=== PATIENT | male | born 1950 | race Two or more races ===

== ENCOUNTER 2019-05-20 22:10 | Emergency (ER) | payer OTHER, MEDICAID ==
[~2019-05-20] VITALS: Ht 175.3 cm; Wt 99.8 kg
[2019-05-20 23:20] LABS: Basophils # (auto) 0.1 uL; Basophils % (auto) 0.8 % (0.0-2.0); Eosinophils # (auto) 0.3 uL; Hematocrit 47.1 % (41.0-53.0); Hemoglobin 16.4 g/dL (13.5-17.5); Lymphocytes % (auto) 22.9 % (10.0-50.0); Mean Corpuscular Hemoglobin 32.2 pg (28.0-32.0); Mean Corpuscular Hgb Conc. 34.7 g/dL (32.0-36.0); Mean Corpuscular Volume 92.7 fL (80.0-100.0); Monocytes # (auto) 0.6 uL; Neutrophils # (auto) 5.9 uL; Neutrophils % (auto) 66.3 % (37.0-80.0); Platelet Count (auto) 228 10^3/uL (140-450); Red Blood Cells 5.08 10^6/uL (4.5-5.90); Red Cell Distribution Width 13.7 % (11.8-14.3); White Blood Cell 8.9 10^3/uL (4.4-10.8)
[2019-05-20 23:33] LABS: Alanine Aminotransferase 26 U/L (16-61); Albumin 3.7 g/dL (3.4-5.0); Anion Gap 8 (5-15); Aspartate Aminotransferase 20 U/L (15-37); BUN/Creatinine Ratio 9.8; Blood Urea Nitrogen 11 mg/dL (7-18); Calcium 9.1 mg/dL (8.5-10.1); Carbon Dioxide 26 mmol/L (21-32); Chloride 107 mmol/L (98-107); GFR African American 84 mL/min; GFR Non-African American 69 mL/min; Glucose 130 mg/dL (74-106); Magnesium 2.3 mg/dL (1.6-2.6); Potassium 3.9 mmol/L (3.5-5.1); Sodium 141 mmol/L (136-145)
[2019-05-20 23:38] LABS: Alkaline Phosphatase 97 U/L (45-117); Bilirubin, Total 0.4 mg/dL (0.2-1.0); Total Protein 7.6 g/dL (6.4-8.2)
[2019-05-21] MEDS ORDERED: HYDROcodone-ACET 10/325MG TAB PO ONE (02:15)
[2019-05-21 03:56] LABS: Urine Bacteria NONE SEEN /hpf (None Seen); Urine Blood Negative /uL (Negative); Urine Specific Gravity 1.019 (1.001-1.035); Urine WBC 6 /hpf (0 - 3)
[2019-05-21 05:15] VITALS: BP 130/74
== END 2019-05-21 06:14 | disposition home or self-care (01) ==
LOC: ER 22:15
DX: N20.0 Calculus of kidney (principal); N39.0 Urinary tract infection, site not specified; R07.81 Pleurodynia; K21.9 Gastro-esophageal reflux disease without esophagitis; E78.00 Pure hypercholesterolemia, unspecified; I10 Essential (primary) hypertension; Z86.73 Personal history of transient ischemic attack (TIA), and cerebral infarction without residual deficits; W01.0XXA Fall on same level from slipping, tripping and stumbling without subsequent striking against object, initial encounter; Y93.89 Activity, other specified; Y92.89 Other specified places as the place of occurrence of the external cause; Y99.8 Other external cause status
CPT/HCPCS: 36415; 70450; 71046; 71250; 74176; 80053; 81001; 83735; 84484; 85025; 93005

== ENCOUNTER 2020-08-06 13:51 | Emergency (ER) | payer OTHER, MEDICAID ==
[~2020-08-06] VITALS: Ht 177.8 cm; Wt 86.2 kg
[2020-08-06] MEDS ORDERED: HYDROcodone-ACET 5/325MG TAB PO ONE (15:00)
[2020-08-06 20:00] VITALS: BP 123/66
== END 2020-08-06 20:10 | disposition home or self-care (01) ==
LOC: ER 13:51 → EDBD 13:51 → EDUNIT# 13:51 → ER 20:10
DX: R07.81 Pleurodynia (principal); R10.9 Unspecified abdominal pain
CPT/HCPCS: 71250; 74176